=== PATIENT | female | born 1940 ===

== ENCOUNTER 2017-11-29 10:01 | Outpatient (CLI) | payer OTHER ==
[~2017-11-29 10:01] MED LIST: EVISTA60 MG; ZANTAC150 M3 PO; ZANTAC150 MG PO; ZOLOFT50 MG PO
== END 2017-11-29 14:39 | disposition home or self-care (01) ==
LOC: MAMO-SONO 10:01
DX: Z12.31 Encounter for screening mammogram for malignant neoplasm of breast (principal); Z87.898 Personal history of other specified conditions; D48.60 Neoplasm of uncertain behavior of unspecified breast

== ENCOUNTER 2017-12-07 08:52 | Outpatient (CLI) | payer OTHER | END 2017-12-07 09:11 | disposition home or self-care (01) | LOC: LAB 08:52 | DX: Z79.899 Other long term (current) drug therapy (principal) ==

== ENCOUNTER 2017-12-10 07:35 | Outpatient (CLI) | payer OTHER | END 2017-12-10 07:55 | disposition home or self-care (01) | LOC: TOM 07:35 | DX: M79.9 Soft tissue disorder, unspecified (principal); D48.1 Neoplasm of uncertain behavior of connective and other soft tissue | CPT/HCPCS: 70491; Q9965 ==

== ENCOUNTER 2017-12-19 07:58 | Outpatient (CLI) | payer OTHER ==
[~2017-12-19] VITALS: Ht 162.6 cm; Wt 73.5 kg
== END 2017-12-19 08:10 | disposition home or self-care (01) ==
LOC: OFIC 805 07:58
DX: J31.0 Chronic rhinitis (principal); J34.3 Hypertrophy of nasal turbinates; R22.1 Localized swelling, mass and lump, neck; E04.1 Nontoxic single thyroid nodule

== ENCOUNTER 2017-12-20 08:40 | Outpatient (CLI) | payer OTHER | END 2017-12-20 12:20 | disposition home or self-care (01) | LOC: MRI 08:40 | DX: M79.9 Soft tissue disorder, unspecified (principal); D48.1 Neoplasm of uncertain behavior of connective and other soft tissue | CPT/HCPCS: 70542; A9579 ==

== ENCOUNTER 2017-12-25 08:09 | Outpatient (CLI) | payer OTHER | END 2017-12-25 08:16 | disposition home or self-care (01) | LOC: SONOGRAMA 08:09 | DX: R22.2 Localized swelling, mass and lump, trunk (principal); R59.9 Enlarged lymph nodes, unspecified; C07 Malignant neoplasm of parotid gland; E04.1 Nontoxic single thyroid nodule ==

== ENCOUNTER 2018-01-16 07:30 | Outpatient (CLI) | payer OTHER ==
[~2018-01-16] VITALS: Ht 152.4 cm; Wt 73.5 kg
== END 2018-01-16 14:47 | disposition home or self-care (01) ==
LOC: OFIC 805 07:30
DX: J34.3 Hypertrophy of nasal turbinates (principal); J31.0 Chronic rhinitis; E04.1 Nontoxic single thyroid nodule; R22.1 Localized swelling, mass and lump, neck; J35.1 Hypertrophy of tonsils

== ENCOUNTER 2018-01-22 07:46 | Outpatient (CLI) | payer OTHER | END 2018-01-22 08:00 | disposition home or self-care (01) | LOC: OFIC 805 07:46 | DX: E04.1 Nontoxic single thyroid nodule (principal); R22.1 Localized swelling, mass and lump, neck; J35.1 Hypertrophy of tonsils ==

== ENCOUNTER 2018-01-28 05:53 | Day surgery (SDC) | payer OTHER | END 2018-01-28 10:25 | disposition home or self-care (01) | LOC: CIR.AMB 05:53 | DX: D10.1 Benign neoplasm of tongue (principal) ==

== ENCOUNTER → 2018-02-05 | Outpatient (CLI) | payer OTHER ==
[~2018-02-05] VITALS: Ht 152.4 cm; Wt 73.5 kg
== END | disposition home or self-care (01) ==
LOC: OFIC 805 08:05
DX: D37.02 Neoplasm of uncertain behavior of tongue (principal); J35.1 Hypertrophy of tonsils

== ENCOUNTER 2018-02-20 07:18 | Outpatient (CLI) | payer OTHER ==
[~2018-02-20] VITALS: Ht 152.4 cm; Wt 73.5 kg
== END 2018-02-20 07:40 | disposition home or self-care (01) ==
LOC: OFIC 805 07:18
DX: J35.1 Hypertrophy of tonsils (principal); R22.1 Localized swelling, mass and lump, neck

== ENCOUNTER 2018-04-04 09:38 | Outpatient (CLI) | payer OTHER | END 2018-04-04 09:48 | disposition home or self-care (01) | LOC: LAB 09:38 | DX: E55.9 Vitamin D deficiency, unspecified (principal); Z12.11 Encounter for screening for malignant neoplasm of colon; Z79.899 Other long term (current) drug therapy; R53.83 Other fatigue; R79.89 Other specified abnormal findings of blood chemistry ==

== ENCOUNTER 2018-04-05 09:22 | Outpatient (CLI) | payer OTHER | END 2018-04-05 09:32 | disposition home or self-care (01) | LOC: LAB 09:22 | DX: E55.9 Vitamin D deficiency, unspecified (principal); Z12.11 Encounter for screening for malignant neoplasm of colon; Z79.899 Other long term (current) drug therapy; R53.83 Other fatigue; R79.9 Abnormal finding of blood chemistry, unspecified ==

== ENCOUNTER 2018-09-11 07:12 | Outpatient (CLI) | payer OTHER ==
[~2018-09-11] VITALS: Ht 152.4 cm; Wt 73.5 kg
== END 2018-09-11 07:35 | disposition home or self-care (01) ==
LOC: OFIC 805 07:12
DX: J31.0 Chronic rhinitis (principal); E04.1 Nontoxic single thyroid nodule; J35.1 Hypertrophy of tonsils; R22.1 Localized swelling, mass and lump, neck; J34.2 Deviated nasal septum

== ENCOUNTER 2020-05-18 06:43 | Outpatient (CLI) | payer OTHER | END 2020-05-18 06:55 | disposition home or self-care (01) | LOC: LAB 06:43 | PROVIDERS: ATTEND Internal Medicine | DX: R53.83 Other fatigue (principal); R79.89 Other specified abnormal findings of blood chemistry; Z12.11 Encounter for screening for malignant neoplasm of colon; Z79.899 Other long term (current) drug therapy ==

== ENCOUNTER → 2020-12-02 | Outpatient (CLI) | payer OTHER | END | disposition home or self-care (01) | LOC: LAB 06:34 | PROVIDERS: ATTEND Internal Medicine | DX: R79.89 Other specified abnormal findings of blood chemistry (principal); M85.80 Other specified disorders of bone density and structure, unspecified site; E55.9 Vitamin D deficiency, unspecified; R53.83 Other fatigue; Z79.899 Other long term (current) drug therapy ==

== ENCOUNTER → 2021-06-08 08:24 | Outpatient (CLI) | payer OTHER | END | disposition home or self-care (01) | LOC: LAB 08:24 | PROVIDERS: ATTEND Internal Medicine | DX: R53.83 Other fatigue (principal); Z79.899 Other long term (current) drug therapy; Z12.11 Encounter for screening for malignant neoplasm of colon; E67.3 Hypervitaminosis D ==

== ENCOUNTER → 2021-06-09 08:37 | Outpatient (CLI) | payer OTHER | END | disposition home or self-care (01) | LOC: LAB 08:37 | PROVIDERS: ATTEND Internal Medicine | DX: R53.83 Other fatigue (principal); E67.3 Hypervitaminosis D; Z12.11 Encounter for screening for malignant neoplasm of colon; Z79.899 Other long term (current) drug therapy ==

== ENCOUNTER 2021-07-21 08:28 | Outpatient (CLI) | payer OTHER | END 2021-07-21 08:39 | disposition home or self-care (01) | LOC: RAD 08:28 | PROVIDERS: ATTEND Ophthalmology | DX: I10 Essential (primary) hypertension (principal); I70.0 Atherosclerosis of aorta; H25.011 Cortical age-related cataract, right eye; Z98.41 Cataract extraction status, right eye ==

== ENCOUNTER 2021-08-26 09:40 | Outpatient (CLI) | payer OTHER | END 2021-08-26 09:45 | disposition home or self-care (01) | LOC: RAD 09:40 | PROVIDERS: ATTEND Internal Medicine | DX: M25.561 Pain in right knee (principal); M25.562 Pain in left knee ==

== ENCOUNTER 2021-11-18 09:06 | Outpatient (CLI) | payer OTHER | END 2021-11-18 12:50 | disposition home or self-care (01) | LOC: EKG 09:06 | PROVIDERS: ATTEND Internal Medicine | DX: I49.49 Other premature depolarization (principal); Z01.811 Encounter for preprocedural respiratory examination ==

== ENCOUNTER 2022-10-19 06:34 | Outpatient (CLI) | payer OTHER | END 2022-10-19 06:35 | disposition home or self-care (01) | LOC: LAB 06:34 | PROVIDERS: ATTEND Internal Medicine | DX: R79.9 Abnormal finding of blood chemistry, unspecified (principal); R53.83 Other fatigue; E55.9 Vitamin D deficiency, unspecified; Z79.899 Other long term (current) drug therapy ==